=== PATIENT | male | born 1935 | race Caucasian/White ===

== ENCOUNTER 2017-06-09 10:03 | Day surgery (SDC) | payer MEDICARE, OTHER, SELFPAY ==
[2017-06-09] VITALS (7 sets, daily range): BP systolic 172–186; BP diastolic 64–75; PULSE 37–42; RESP 16–18; TEMP 36.6–37.2; O2SAT 94–100; BMI 29.2
--- NOTE | 2017-06-09 12:55 | OP.PCM_ITS ---
Report of Operation Date of Procedure: 06/09/17 Pre-Operative Diagnosis: constipation Post-Operative Diagnosis: same,normal colon Surgery/Procedure Performed:: colonoscopy Description of Surgical Findings:: normal colon Type of Anesthesia:: MAC Anesthesiologist: Hari Johnston Specimen's removed: none Estimated Blood Loss (mL): none Fluids Replaced: 500 ml RL Description of Procedure: After informed consent was given, the patient was brought to the endoscopy suite and placed in the supine position. Appropriate time out protocol was followed. Appropriate cardiac, blood pressure, and pulse oximetry monitoring was placed. After stable vital signs were noted, the patient was given intravenous conscious sedation. The patient was then placed in the left lateral decubitis position. The colonoscope was lubricated and carefully inserted into the patient?s anus. It was then advanced into the rectum, then into the sigmoid colon, then into the left descending colon, past the splenic flexure, into the transverse colon, past the hepatic flexure, then down into the right descending colon and into the cecum. The cecum was identified by: transillumination, confluence of the tenae coli, identification of the ileocecal valve and appendiceal orifice, and external pressure with indentation. At this point, the colonoscope was slowly retracted back and the entire colonic mucosa was examined. The colon cleansing preparation was adequate. There was no evidence of extrinsic compression and no inflammatory changes were noted. Where feasible, any insufflated gas was aspirated out. No intraluminal obstructing lesions, no strictures, and no ulcers were noted. Retroflex view in the rectum revealed no lesions in the rectal vault. The colonoscope was removed intact. Patient tolerated procedure well. - Complications none noted - Admit VTE Documentation VTE Present on Admission: No - low risk procedure for DVT/PE
== END 2017-06-09 13:31 | disposition home or self-care (01) ==
LOC: EN 10:08 → AC 10:10
PROVIDERS: Family Provider Student in an Organized Health Care Education/Training Program; PCP Student in an Organized Health Care Education/Training Program; Visit Provider Surgery
PROC: 0DJD8ZZ Inspection of Lower Intestinal Tract, Via Natural or Artificial Opening Endoscopic (ICD-10-PCS; CPT 45378; principal; 2017-06-09 11:55)
DX: Z12.11 Encounter for screening for malignant neoplasm of colon (principal); K59.00 Constipation, unspecified; K62.5 Hemorrhage of anus and rectum; R19.7 Diarrhea, unspecified; F41.9 Anxiety disorder, unspecified; F32.9 Major depressive disorder, single episode, unspecified; E78.2 Mixed hyperlipidemia; M48.00 Spinal stenosis, site unspecified; I10 Essential (primary) hypertension; R60.0 Localized edema; M54.9 Dorsalgia, unspecified; G89.29 Other chronic pain; Z85.828 Personal history of other malignant neoplasm of skin; Z79.82 Long term (current) use of aspirin; Z79.899 Other long term (current) drug therapy
CPT/HCPCS: G0121; J7120